=== PATIENT | female | born 1970 | race Two or more races ===

== ENCOUNTER 2018-11-21 18:44 | Emergency (ER) | payer SELFPAY ==
[2018-11-21] MEDS ORDERED: ONDANSETRON 4 MG TAB.RAPDIS PO ONE (19:50)
--- NOTE | 2018-11-21 19:50 | ER Document Report ---
ED Medical Screen (RME) - General Chief Complaint: Nausea/Vomiting/Diarrhea Stated Complaint: vomiting Time Seen by Provider: 11/21/18 19:39 Mode of Arrival: Wheelchair Information source: Patient Notes: 48-year-old female presented to ED for complaint of nausea vomiting diarrhea with back neck pain body aches. She states she has had diarrhea for the last 3 days and vomiting between 5 and 10 times a day. She states she was just down in [facility] after being transferred from here to there about 3 months ago and states that 58 days and got out about 3 weeks ago. She states that in a beta because she was septic. She states after that she letter to the hospital she was doing good until about 3 days ago when she started with the nausea vomiting and diarrhea. I have greeted and performed a rapid initial assessment of this patient. A comprehensive ED assessment and evaluation of the patient, analysis of test results and completion of medical decision making process will be conducted by an additional ED providers. Dictation of this chart was performed using voice recognition software; therefore, there may be some unintended grammatical errors. TRAVEL OUTSIDE OF THE [place] IN LAST 30 DAYS: No - Related Data Allergies/Adverse Reactions: No Known Allergies Allergy (Unverified 11/21/18 19:02) Past Medical History - Social History Chew tobacco use (# tins/day): No Frequency of alcohol use: None Drug Abuse: None Endocrine Medical History: Reports: Hx Diabetes Mellitus Type 2 Renal/ Medical History: Denies: Hx Peritoneal Dialysis Physical Exam - Vital signs Vitals: Temp Pulse Resp BP Pulse Ox 97.7 F 116 H 18 149/110 H 98 11/21/18 19:25 11/21/18 19:25 11/21/18 19:25 11/21/18 19:25 11/21/18 19:25 Course - Vital Signs Vital signs: Temp Pulse Resp BP Pulse Ox 97.7 F 116 H 18 149/110 H 98 11/21/18 19:25 11/21/18 19:25 11/21/18 19:25 11/21/18 19:25 11/21/18 19:25 - Laboratory Laboratory results interpreted by me: 11/21/18 19:26 POC Glucose 168 H
[2018-11-21 20:59] LABS: APPEARANCE,URINE CLOUDY; BILIRUBIN,URINE NEGATIVE (NEGATIVE); COLOR,URINE AMBER; GLUCOSE, URINE NEGATIVE (NEGATIVE); KETONES,URINE NEGATIVE (NEGATIVE); LEUKOCYTE ESTERASE,URINE MODERATE (NEGATIVE); NITRITE,URINE NEGATIVE (NEGATIVE); PROTEIN,URINE 30 mg/dL (NEGATIVE); URINE SPECIFIC GRAVITY 1.027; UROBILINOGEN,URINE NEGATIVE mg/dL (<2.0)
[2018-11-21 21:09] LABS: ALANINE AMINOTRANSFERASE 25 U/L (9-52); ALBUMIN 2.9 g/dL (3.5-5.0); ALKALINE PHOSPHATASE 416 U/L (38-126); ANION GAP 10 (5-19); ASPARTATE AMINO TRANSFERASE 42 U/L (14-36); BILIRUBIN,DIRECT 0.7 mg/dL (0.0-0.4); BILIRUBIN,TOTAL 1.5 mg/dL (0.2-1.3); BLOOD UREA NITROGEN 4 mg/dL (7-20); CALCIUM 9.6 mg/dL (8.4-10.2); CARBON DIOXIDE 21 mmol/L (22-30); CHLORIDE 107 mmol/L (98-107); GLUCOSE 173 mg/dL (75-110); LIPASE 273.7 U/L (23-300); POTASSIUM 4.2 mmol/L (3.6-5.0); SODIUM 137.6 mmol/L (137-145); TOTAL PROTEIN 7.6 g/dL (6.3-8.2)
[2018-11-21 22:21] LABS: ABSOLUTE BASOPHILS # (AUTO) 0.1 10^3/uL (0.0-0.2); ABSOLUTE LYMPHOCYTES (AUTO) 2.4 10^3/uL (0.5-4.7); ABSOLUTE MONOCYTES (AUTO) 0.6 10^3/uL (0.1-1.4); ABSOLUTE NEUT (AUTO) 8.5 10^3/uL (1.7-8.2); BASOPHILS % (AUTO) 0.7 % (0-2); EOSINOPHILS % (AUTO) 0.2 % (0-6); HEMOGLOBIN 11.3 g/dL (12.0-15.5); MEAN CORPUSCULAR HEMOGLOBIN 30.3 pg (27.0-33.4); MEAN CORPUSCULAR HGB CONC 33.3 g/dL (32.0-36.0); MEAN CORPUSCULAR VOLUME 91 fl (80-97); MONOCYTES % (AUTO) 5.2 % (3-13); PLATELET COUNT 180 10^3/uL (150-450); RED BLOOD COUNT 3.73 10^6/uL (3.72-5.28); RED CELL DISTRIBUTION WIDTH 17.2 % (11.5-14.0); SEGMENTED NEUTROPHILS % (AUTO) 72.9 % (42-78); TOTAL CELLS COUNTED % (AUTO) 100 %; WHITE BLOOD COUNT 11.7 10^3/uL (4.0-10.5)
[2018-11-22] MEDS ORDERED: RINGERS SOLUTION,LACTATED 1,000 ML IV PRN (01:39)
[2018-11-22] MEDS ORDERED: MORPHINE SULFATE 10 MG/ML INJ IV ONE (01:40)
[2018-11-22] MEDS ORDERED: ONDANSETRON HCL INJ/PF 4 MG/2 ML SDV IV ONE (01:40)
--- NOTE | 2018-11-22 01:41 | ER Document Report ---
ED General - General Chief Complaint: Nausea/Vomiting/Diarrhea Stated Complaint: vomiting Time Seen by Provider: 11/21/18 19:39 Primary Care Provider: [facility] [Provider Group] - Follow up in 3-5 days Mode of Arrival: Wheelchair Notes: Patient is a 48-year-old female that presents to the emergency department for chief complaint of abdominal pain, nausea, vomiting diarrhea. Patient states that the last 3 days she started having watery diarrhea, and yesterday started having nonbilious vomiting. She has had abdominal cramping and pain since then. She describes it as all over her abdomen. And not one spot of the other. She states it feels like when she had a flareup of pancreatitis. She currently rates her pain as a 7 out of 10 describes it as severe aching pain in her abdomen that radiates towards the back. She states she was diagnosed with acute pancreatitis over 2 months ago, states that she was intubated, and in the ICU, and total hospitalization for 58 days in [facility], she was discharged 3 weeks ago states she is doing rather well, and recovering and getting therapy up until 3 days ago when she started feeling worse. She denies any recent consumption of undercooked foods, or any sick contacts that she is aware of. She states she was on antibiotics for pneumonia early on in her hospital course, but nothing recently. Past Medical History: Alcoholism, pancreatitis, diabetes mellitus Past Surgical History: Gastric bypass surgery Social History: Admits to smoking cigarettes, former alcoholic, denies illicit drug use. Family History: Reviewed and noncontributory for presenting illness Allergies: Reviewed, see documented allergy list. REVIEW OF SYSTEMS: Other than noted above, the 12 point review of systems was reviewed with the patient and were negative, all pertinent findings are included in the HPI. PHYSICAL EXAMINATION: Vital signs reviewed, nursing noted reviewed. GENERAL: Patient appears uncomfortable on exam, tearful. HEAD: Atraumatic, normocephalic. EYES: Eyes appear normal, extraocular movements intact, sclera anicteric, conjunctiva are normal. ENT: nares patent, oropharynx clear without exudates. Moist mucous membranes. NECK: Normal range of motion, supple without lymphadenopathy LUNGS: Breath sounds clear to auscultation bilaterally and equal. No wheezes rales or rhonchi. HEART: Heart rate tachycardic, regular rhythm. ABDOMEN: Soft, mild diffuse abdominal tenderness with palpation, normoactive bowel sounds. No rebound, guarding, or rigidity. No masses appreciated. EXTREMITIES: Nontender, good range of motion, no pitting or edema. NEUROLOGICAL: No focal neurological deficits. Moves all extremities spontaneously Motor and sensory grossly intact on exam. PSYCH: Tearful on exam, but answering questions appropriately. SKIN: Warm, Dry, normal turgor, no rashes or lesions noted on exposed skin TRAVEL OUTSIDE OF THE [place] IN LAST 30 DAYS: No - Related Data Allergies/Adverse Reactions: No Known Allergies Allergy (Unverified 11/21/18 19:02) Past Medical History - General Information source: Patient - Social History Smoking Status: Current Every Day Smoker Chew tobacco use (# tins/day): No Frequency of alcohol use: None Drug Abuse: None Family History: Reviewed & Not Pertinent Patient has suicidal ideation: No Patient has homicidal ideation: No Endocrine Medical History: Reports: Hx Diabetes Mellitus Type 2 Renal/ Medical History: Denies: Hx Peritoneal Dialysis Physical Exam - Vital signs Vitals: Temp Pulse Resp BP Pulse Ox 97.7 F 116 H 18 149/110 H 98 11/21/18 19:25 11/21/18 19:25 11/21/18 19:25 11/21/18 19:25 11/21/18 19:25 Course - Re-evaluation Re-evalutation: Patient seen and examined vital signs reviewed. Laboratory data and/or imaging were ordered as appropriate for the patient's presenting symptoms and complaint, with consideration of any critical or life threatening conditions that may be associated with their obtained history and exam as noted above. Patient was treated with IV fluids, Zofran, and morphine for pain Results were reviewed when available and demonstrated mild elevation in bilirubin, and elevated alkaline phosphatase, therefore right upper quadrant ultrasound was ordered, with an unremarkable appearing gallbladder, mild hepatic steatosis noted as well. The patient with a history of drinking as hers, this would be expected. I imagine in this patient's case her elevated alkaline phosphatase is secondary to the patient's bone demineralization, given that she was bed ridden essentially for 2 months, which is consistent with other blood work including her albumin that was markedly low at 2.9. The patient was re-evaluated and was stable and much improved after treatment, feel the patient likely has a viral gastroenteritis, low suspicion for C. difficile given recent antibiotic use, and only minimally elevated white blood cell count, patient had not had diarrhea while in the ED either. It is possible she is having a flare on chronic pancreatitis as the patient states she was pre scribed Creon, but could not afford it, recommended taking Zofran at home, will give a short prescription, 8 tablets of oxycodone IR to take for pain if this is an acute on chronic pancreatitis and a mild degree, have her follow-up with chronic pain management and her primary care. Evaluation was most consistent with abdominal pain, nausea, vomiting and diarrhea Results were discussed with the patient at this point, after careful consideration I feel that that patient can be discharged from the emergency department, the patient was educated treatments and reasons to return to the emergency department based on their presumed diagnosis as noted above, they were advised to followup with a primary care physician in 2-3 days. Patient was agreeable to plan of care. *Note is created using voice recognition software and may contain spelling, syntax or grammatical errors. Laboratory 11/21/18 11/21/18 11/21/18 19:26 20:28 20:28 WBC Cancelled RBC Cancelled Hgb Cancelled Hct Cancelled MCV Cancelled MCH Cancelled MCHC Cancelled RDW Cancelled Plt Count Cancelled Seg Neutrophils % Cancelled Lymphocytes % Cancelled Monocytes % Cancelled Eosinophils % Cancelled Basophils % Cancelled Absolute Neutrophils Cancelled Absolute Lymphocytes Cancelled Absolute Monocytes Cancelled Absolute Eosinophils Cancelled Absolute Basophils Cancelled Platelet Estimate Cancelled Sodium 137.6 Potassium 4.2 Chloride 107 Carbon Dioxide 21 L Anion Gap 10 BUN 4 L Creatinine 0.61 Est GFR ( Amer) > 60 Est GFR (Non-Af Amer) > 60 Glucose 173 H POC Glucose 168 H Calcium 9.6 Total Bilirubin 1.5 H Direct Bilirubin 0.7 H Neonat Total Bilirubin Not Reportable Neonat Direct Bilirubin Not Reportable Neonat Indirect Bili Not Reportable AST 42 H ALT 25 Alkaline Phosphatase 416 H CK-MB (CK-2) Total Protein 7.6 Albumin 2.9 L Lipase 273.7 Beta HCG, Quant < 2.39 Total Beta HCG NEGATIVE Urine Color Urine Appearance Urine pH Ur Specific [place] Urine Protein Urine Glucose (UA) Urine Ketones Urine Blood Urine Nitrite Urine Bilirubin Urine Urobilinogen Ur Leukocyte Esterase Urine WBC (Auto) Urine RBC (Auto) U Hyaline Cast (Auto) Urine Bacteria (Auto) Squamous Epi Cells Auto Urine Mucus (Auto) Urine Ascorbic Acid Slides for Path Review Cancelled 11/21/18 11/21/18 11/21/18 20:28 20:28 21:53 WBC 11.7 H RBC 3.73 Hgb 11.3 L Hct 34.0 L MCV 91 MCH 30.3 MCHC 33.3 RDW 17.2 H Plt Count 180 Seg Neutrophils % 72.9 Lymphocytes % 21.0 Monocytes % 5.2 Eosinophils % 0.2 Basophils % 0.7 Absolute Neutrophils 8.5 H Absolute Lymphocytes 2.4 Absolute Monocytes 0.6 Absolute Eosinophils 0.0 Absolute Basophils 0.1 Platelet Estimate Sodium Potassium Chloride Carbon Dioxide Anion Gap BUN Creatinine Est GFR ( Amer) Est GFR (Non-Af Amer) Glucose POC Glucose Calcium Total Bilirubin Direct Bilirubin Neonat Total Bilirubin Neonat Direct Bilirubin Neonat Indirect Bili AST ALT Alkaline Phosphatase CK-MB (CK-2) 0.80 Total Protein Albumin Lipase Beta HCG, Quant Total Beta HCG Urine Color PRIYA Urine Appearance CLOUDY Urine pH 5.0 Ur Specific [place] 1.027 Urine Protein 30 H Urine Glucose (UA) NEGATIVE Urine Ketones NEGATIVE Urine Blood NEGATIVE Urine Nitrite NEGATIVE Urine Bilirubin NEGATIVE Urine Urobilinogen NEGATIVE Ur Leukocyte Esterase MODERATE H Urine WBC (Auto) 36 Urine RBC (Auto) 6 U Hyaline Cast (Auto) 20 Urine Bacteria (Auto) TRACE Squamous Epi Cells Auto 17 Urine Mucus (Auto) FEW Urine Ascorbic Acid 20 H Slides for Path Review Abdomen Ultrasound 11/22/18 01:40 IMPRESSION: No acute findings. Hepatic steatosis. Nonspecific positive sonographic Santillan's test. - Vital Signs Vital signs: Temp Pulse Resp BP Pulse Ox 97.8 F 102 H 20 124/57 L 100 11/22/18 01:41 11/22/18 01:41 11/22/18 01:41 11/22/18 01:41 11/22/18 01:41 - Laboratory Result Diagrams: 11/21/18 21:53 11/21/18 20:28 Laboratory results interpreted by me: 11/21/18 11/21/18 11/21/18 19:26 20:28 20:28 WBC Hgb Hct RDW Absolute Neutrophils Carbon Dioxide 21 L BUN 4 L Glucose 173 H POC Glucose 168 H Total Bilirubin 1.5 H Direct Bilirubin 0.7 H AST 42 H Alkaline Phosphatase 416 H Albumin 2.9 L Urine Protein 30 H Ur Leukocyte Esterase MODERATE H Urine Ascorbic Acid 20 H 11/21/18 21:53 WBC 11.7 H Hgb 11.3 L Hct 34.0 L RDW 17.2 H Absolute Neutrophils 8.5 H Carbon Dioxide BUN Glucose POC Glucose Total Bilirubin Direct Bilirubin AST Alkaline Phosphatase Albumin Urine Protein Ur Leukocyte Esterase Urine Ascorbic Acid Discharge - Discharge Clinical Impression: Nausea, vomiting and diarrhea Abdominal pain Qualifiers: Abdominal location: unspecified location Qualified Code(s): R10.9 - Unspecified abdominal pain Condition: Stable Disposition: HOME, SELF-CARE Instructions: Diarrhea, Nonspecific ([facility]), Vomiting ([facility]) Additional Instructions: Please follow-up with your primary care physician, call for an appointment, I have also listed a pain management clinic to follow-up with as well. Prescriptions: Omeprazole 40 mg PO DAILY #15 capsule. Oxycodone HCl [Oxycontin Ir 5 Mg Tablet] 5 mg PO Q6H PRN #8 tablet PRN Reason: For Pain Referrals: [facility] [Provider Group] - Follow up in 3-5 days
[2018-11-22] MEDS ORDERED: HYDROMORPHONE HCL INJ/PF 2 MG/ML AMPULE IV ONE (03:05)
--- NOTE | 2018-11-22 03:11 | RADIOLOGY REPORT (SQ) ---
EXAM DESCRIPTION: US ABDOMEN LIMITED COMPLETED DATE/TME: 11/22/2018 01:40 CLINICAL HISTORY: 48 years Female, ruq abdominal pain, n/v/d Comparison: None. LIMITATIONS: Bowel gas artifact. FINDINGS: Gallbladder is not fully distended, 0.4 cm gallbladder wall thickening, positive sonographic Santillan's test, moderate hepatic steatosis, 19 cm liver, a 0.8-cm diameter common bile duct, no intrahepatic ductal dilation, hepatopetal patent flow of the portal vein, 9-cm right kidney, obscured pancreas, visualized vasculature/abdominal aorta, and no significant ascites appear otherwise unremarkable. IMPRESSION: No acute findings. Hepatic steatosis. Nonspecific positive sonographic Santillan's test.
[2018-11-22] MEDS ORDERED: ONDANSETRON ODT 4 MG TAB (6 TAB/ER DISP) PO PRN (04:09)
[2018-11-22 04:45] VITALS: BP 126/58
== END 2018-11-22 04:35 | disposition home or self-care (01) ==
LOC: EDBD → ER 18:44
DX: R11.2 Nausea with vomiting, unspecified (principal); R19.7 Diarrhea, unspecified; R10.84 Generalized abdominal pain; R10.817 Generalized abdominal tenderness; K76.0 Fatty (change of) liver, not elsewhere classified; R74.0 Nonspecific elevation of levels of transaminase and lactic acid dehydrogenase [LDH]; R79.89 Other specified abnormal findings of blood chemistry; E11.9 Type 2 diabetes mellitus without complications; F17.210 Nicotine dependence, cigarettes, uncomplicated; Z87.19 Personal history of other diseases of the digestive system; Z98.84 Bariatric surgery status
CPT/HCPCS: 99284; 96361; 96374; 96375; 36415; 82553; 82962; 84702; 83690; 85025; 80053; 81001; 76705; S0119; J2270; J1170; J2405; J7120

== ENCOUNTER 2019-02-11 06:12 | Emergency (ER) | payer SELFPAY ==
[2019-02-11] MEDS ORDERED: NALOXONE HCL INJ 2 MG/2 ML DISP.SYRIN IV ONE (06:37)
[2019-02-11] MEDS ORDERED: DEXTROSE 5%-WATER 250 ML with NOREPINEPHRINE BITARTRATE 4 MG IV PRN ×2 (06:37)
[2019-02-11] MEDS ORDERED: KETAMINE HCL INJ 500 MG/10 ML VIAL IV ONE (06:38)
[2019-02-11] MEDS ORDERED: ROCURONIUM BROMIDE INJ 50 MG/5 ML VIAL IV ONE ×2 (06:38→09:03)
[2019-02-11] MEDS ORDERED: NORMAL SALINE 1000 ML 1,000 ML IV ONE (06:39)
--- NOTE | 2019-02-11 06:50 | RADIOLOGY REPORT (SQ) ---
EXAM DESCRIPTION: XR CHEST 1 VIEW COMPLETED DATE/TME: 02/11/2019 00:00 CLINICAL HISTORY: 48 years, Female, DIFF BREATHING COMPARISON: None. NUMBER OF VIEWS: One TECHNIQUE: AP view the chest LIMITATIONS: None. FINDINGS: There are diffuse airspace opacities. A moderate size right pleural effusion is present. The heart borders are obscured. There is no pneumothorax. No acute fracture is identified. IMPRESSION: Diffuse airspace opacities with a moderate size right pleural effusion. This may represent pulmonary edema and/or pneumonia. copyright 2010 [employer]- All Rights Reserved
[2019-02-11] MEDS ORDERED: VANCOMYCIN HCL INJ 1000 MG VIAL IV ONE (06:55)
--- NOTE | 2019-02-11 06:56 | ER Document Report ---
ED General - General Chief Complaint: Breathing Difficulty Stated Complaint: DIFFICULTY BREATHING Notes: 48-year-old female brought in with hypotension hypoxia unresponsiveness. Initially there was very little history available but eventually found out she has a history of severe CHF and was admitted to [facility] for multifactorial shock and respiratory failure including septic shock and cardiogenic shock in the last month. She states she hurts all over and cannot give further history. EMS has her on nonrebreather saturations in the 80s. TRAVEL OUTSIDE OF THE [place] IN LAST 30 DAYS: No - Related Data Allergies/Adverse Reactions: No Known Allergies Allergy (Unverified 11/21/18 19:02) Past Medical History - General Cannot obtain history due to: Unstable vital signs - Social History Smoking Status: Current Every Day Smoker Family History: Reviewed & Not Pertinent Endocrine Medical History: Reports: Hx Diabetes Mellitus Type 2 Renal/ Medical History: Denies: Hx Peritoneal Dialysis Review of Systems - Review of Systems Notes: REVIEW OF SYSTEMS Status/unstable vitals PHYSICAL EXAMINATION General: Acutely ill Head: Atraumatic, normocephalic ENT: Mouth normal, oropharynx moist, no exudates or tonsillar enlargement Eyes: Conjunctiva normal, pupils equal, lids normal Neck: No JVD, supple, no guarding CVS: Pulses are thready, tachycardic Resp: Distress with decreased breath sounds at both bases GI: Nondistended, soft, no tenderness to palpation, no rebound or guarding Ext: No deformities, bilateral leg edema, left greater than right arm edema, normal range of motion in upper and lower ext Back: No CVA or midline TTP Skin: [place] Lymphatic: No lymphadeopathy noted Neuro: Eyes open, voice is quiet responds to simple questions but is generally lethargic, moving all extremities Physical Exam - Vital signs Vitals: Resp Pulse Ox 36 H 86 L 02/11/19 06:16 02/11/19 06:16 Course - Re-evaluation Re-evalutation: 02/11/19 06:55 Critically ill patient presents with shock and hypoxia with respiratory failure. 02/11/19 07:13 Initially hypoxic but saturations came up with facemask and nasal cannula oxygen. Ultrasound of the chest shows bilateral pleural effusions and poor cardiac contractility. Chest x-ray was donethis shows bilateral pulmonary edema and effusions. The patient was managed initially without IV access, we put an IO in her right shoulder, gave her a half a liter of fluid and started levo fed drip. Concomitantly nurse to search for access. I attempted a right groin central line but due to anasarca and poor body habitus this was not possible. Attempted EJ [id number]. Initially unable to obtain further access nurses got to 20-gauge IVs. I am concerned for cardiac shock but she is been septic in the past and prehospital lactic was 10. I have ordered cefepime 2 g and vancomycin 1 g. As of 715 they are both infusing. We were able to avoid intubation also be considered strongly. I do not have lab data back yet but I do suspect multifactorial shock and respiratory failure. I did try Narcan which did not improve her respiratory drive. I looked this patient up in the [facility] records, via the mobile yoko, and she was admitted for septic and cardiogenic shock about 3 months ago to the ICU and had respiratory failure at that time as well. Her family is unavailable at current time for further history. I placed a call to [facility]. The patient was accepted for transfer, before her work-up was complete, at a proximally [address] Ford. Labs were sent 715. 02/11/19 08:17 Chest x-ray 15 shows slightly deep But I will leave in place for now. The patient's pressure is stable and she is intermittently requiring levo fed but her respiratory status is also stabilized with saturations in the low 90s. I do not want to give her diuresis at this point. She has now a right internal jugular line, vital leak is on their way. The patient is been accepted by Dr. Ford 02/11/19 08:17 I discussed with the family. - Vital Signs Vital signs: Temp Pulse Resp BP Pulse Ox 97.3 F 39 H 120/88 H 95 02/11/19 06:33 02/11/19 06:40 02/11/19 06:40 02/11/19 06:40 - Laboratory Result Diagrams: 02/11/19 07:00 02/11/19 07:00 Laboratory results interpreted by me: 02/11/19 02/11/19 07:00 07:00 WBC 12.0 H RBC 3.38 L Hgb 11.2 L Hct 33.9 L MCV 100 H RDW 17.1 H Band Neutrophils % 27 H Abs Neuts (Manual) 9.8 H Sodium 129.7 L Potassium 5.3 H Carbon Dioxide 14 L Creatinine 2.27 H Est GFR ( Amer) 28 L Est GFR (MDRD) Non-Af 23 L Glucose 177 H Total Bilirubin 4.2 H Direct Bilirubin 3.0 H AST 70 H Alkaline Phosphatase 302 H Albumin 1.9 L - Diagnostic Test Radiology reviewed: Image reviewed, Reports reviewed - EKG Interpretation by Me EKG shows normal: Sinus rhythm Rate: Normal, Tachycardia Rhythm: Other - Low amplitude Procedures - Central Line Right Femoral Time completed: 07:50 Consent obtained: Yes - Verbal Central line pre-insertion: Chloraprep applied, Sterile drapes applied Anesthetic type: 1% Lidocaine mL's of anesthesia: 5 Ultrasound guided: Yes Complications: Yes - Failure to place line based on poor visualization Right Internal jugular Time completed: 08:00 Consent obtained: Yes - Verbal emergent Central line pre-insertion: Sterile PPE donned, Chloraprep applied Central line lumen type: Triple Anesthetic type: 1% Lidocaine mL's of anesthesia: 3 Ultrasound guided: Yes Line secured with sutures: Yes Central line post-insertion: Blood return from lumens, Biopatch applied, Sutured, Sterile dressing applied, Position confirmed w/ CXR Number of attempts: 1 Complications: No - Ultrasound/Bedside Ultrasound/Bedside Ultrasound: Other - Echo: Small pericardial effusion. Bilateral pleural effusions right greater than left, poor cardiac contractility, flat IVC/flat internal jugular with respiratory variation - Additional Procedures IO insertion Time performed: 06:40 - Humeral IO right side, sterile prep usual technique IV insertion Time performed: 06:40 - Left external jugular physicianinserted IV. Able to get flash/IV blew. Nursing unable to obtain access so physician still required. Critical Care Note - Critical Care Note Total time excluding time spent on procedures (mins): 75 Comments: The above patient is critically ill. Not including procedures, but including direct re-evaluations, speaking with patient and/or consultants, interpreting results, and documenting, I spent the total amount of minute listed listed above on critical care time Discharge - Discharge Clinical Impression: Cardiogenic shock Respiratory failure with hypoxia Qualifiers: Chronicity: acute Qualified Code(s): J96.01 - Acute respiratory failure with hypoxia Condition: Critical Disposition: [facility]
[2019-02-11] MEDS ORDERED: CEFEPIME 2 GM/D5W RTU 2 GM/50 ML RTUPB IV SCH (07:00)
[2019-02-11] MEDS ORDERED: FENTANYL CITRATE INJ/PF 100 MCG/2 ML AMPUL ONE ×3 (07:12→09:18)
[2019-02-11] MEDS ORDERED: FENTANYL CITRATE INJ/PF 100 MCG/2 ML AMPUL IV ONE (07:16)
[2019-02-11 07:25] LABS: HEMATOCRIT 33.9 % (36.0-47.0); HEMOGLOBIN 11.2 g/dL (12.0-15.5); MEAN CORPUSCULAR HEMOGLOBIN 33.1 pg (27.0-33.4); MEAN CORPUSCULAR VOLUME 100 fl (80-97); RED BLOOD COUNT 3.38 10^6/uL (3.72-5.28); RED CELL DISTRIBUTION WIDTH 17.1 % (11.5-14.0)
[2019-02-11 07:38] LABS: ALBUMIN 1.9 g/dL (3.5-5.0); ALKALINE PHOSPHATASE 302 U/L (38-126); ANION GAP 15 (5-19); ASPARTATE AMINO TRANSFERASE 70 U/L (14-36); BILIRUBIN,TOTAL 4.2 mg/dL (0.2-1.3); BLOOD UREA NITROGEN 11 mg/dL (7-20); CALCIUM 8.4 mg/dL (8.4-10.2); CARBON DIOXIDE 14 mmol/L (22-30); CHLORIDE 101 mmol/L (98-107); GLUCOSE 177 mg/dL (75-110); POTASSIUM 5.3 mmol/L (3.6-5.0); TOTAL PROTEIN 6.4 g/dL (6.3-8.2)
[2019-02-11 07:49] LABS: PLATELET COUNT 157 10^3/uL (150-450)
[2019-02-11 07:53] LABS: ABSOLUTE LYMPHOCYTES# (MANUAL) 1.8 10^3/uL (0.5-4.7); ABSOLUTE MONOCYTES # (MANUAL) 0.4 10^3/uL (0.1-1.4); BASOPHILS % (MANUAL) 0 % (0-2); EOSINOPHILS % (MANUAL) 0 % (0-6); LYMPHOCYTES % (MANUAL) 15 % (13-45); MONOCYTES % (MANUAL) 3 % (3-13); SEGMENTED NEUTROPHILS % (MAN) 55 % (42-78); TOTAL CELLS COUNTED 100
[2019-02-11 07:54] LABS: BAND NEUTROPHILS % (MANUAL) 27 % (3-5); HYPOCHROMASIA 1+; TOXIC GRANULATION SLIGHT; TOXIC VACUOLATION PRESENT
[2019-02-11 07:55] LABS: PLATELET CLUMPS PRESENT; TARGET CELLS SLIGHT
[2019-02-11 08:04] LABS: NT PRO BNP 1680 pg/mL (<125)
[2019-02-11 08:12] LABS: INTERNATIONAL RATION (INR) 2.59; PROTHROMBIN TIME 28.3 SEC (11.4-15.4)
[2019-02-11 08:20] LABS: TROPONIN I < 0.012 ng/mL
--- NOTE | 2019-02-11 08:22 | RADIOLOGY REPORT (SQ) ---
EXAM DESCRIPTION: CHEST SINGLE VIEW COMPLETED DATE/TIME: 02/11/2019 8:08 am REASON FOR STUDY: central line placement. COMPARISON: 02/11/2019 at 0631 hours. EXAM PARAMETERS: NUMBER OF VIEWS: One view. TECHNIQUE: Single frontal radiographic view of the chest acquired. RADIATION DOSE: NA LIMITATIONS: None. FINDINGS: LUNGS AND PLEURA: Diffuse airspace disease. Right pleural effusion versus costophrenic bl unting. No pneumothorax. MEDIASTINUM AND HILAR STRUCTURES: No masses. Contour normal. HEART AND VASCULAR STRUCTURES: Heart normal in size. Normal vasculature. BONES: No acute findings. HARDWARE: Central line with the tip at the level of the right atrium. OTHER: No other significant finding. IMPRESSION: CENTRAL LINE PLACEMENT DESCRIBED. NO PNEUMOTHORAX. OTHERWISE NO CHANGE. TECHNICAL DOCUMENTATION: JOB ID: [id number] [employer]- All Rights Reserved Reading location - IP/workstation name: [email or web address]
[2019-02-11] MEDS ORDERED: ETOMIDATE INJ/PF 20 MG/10 ML SDV IV ONE (08:47)
[2019-02-11] MEDS ORDERED: PROPOFOL 1,000 MG/100 ML INFUS..BTL IV ONE (08:53)
[2019-02-11 09:41] VITALS: BP 149/78
--- NOTE | 2019-02-11 10:04 | RADIOLOGY REPORT (SQ) ---
EXAM DESCRIPTION: CHEST SINGLE VIEW COMPLETED DATE/TIME: 02/11/2019 9:34 am REASON FOR STUDY: post intub COMPARISON: 02/11/2019 at 0758 hours. EXAM PARAMETERS: NUMBER OF VIEWS: One view. TECHNIQUE: Single frontal radiographic view of the chest acquired. RADIATION DOSE: NA LIMITATIONS: None. FINDINGS: LUNGS AND PLEURA: Low lung volumes. Hazy airspace disease and blunting of the right costo phrenic angle. MEDIASTINUM AND HILAR STRUCTURES: No masses. Contour normal. HEART AND VASCULAR STRUCTURES: Heart normal in size. Normal vasculature. BONES: No acute findings. HARDWARE: Stable central venous catheter. Endotracheal tube with the tip located 2 cm proximal to th e michael. OTHER: No other significant finding. IMPRESSION: INTERVAL PLACEMENT OF AN ENDOTRACHEAL TUBE WHICH APPEARS TO BE IN APPROPRIATE POSITION. OTHERWISE NO CHANGE. TECHNICAL DOCUMENTATION: JOB ID: [id number] [employer]- All Rights Reserved Reading location - IP/workstation name: [email or web address]
[2019-02-12 16:44] LABS: PATH REVIEW PATHOLOGIST REVIEWED
--- NOTE | 2019-02-12 23:25 | EKG REPORT ---
SEVERITY:- ABNORMAL ECG - SINUS TACHYCARDIA PROBABLE LEFT ATRIAL ABNORMALITY BORDERLINE R WAVE PROGRESSION, ANTERIOR LEADS BORDERLINE T ABNORMALITIES, ANT-LAT LEADS : Confirmed by: Cale Montiel 12-Feb-2019 23:24:56
== END 2019-02-11 08:38 | disposition short-term general hospital (02) ==
LOC: ER 06:12
PROC: 05HQ33Z Insertion of Infusion Device into Left External Jugular Vein, Percutaneous Approach (ICD-10-PCS; principal; 2019-02-11)
DX: I31.3 Pericardial effusion (noninflammatory) (principal); J90 Pleural effusion, not elsewhere classified; J96.01 Acute respiratory failure with hypoxia; R57.0 Cardiogenic shock; I50.9 Heart failure, unspecified; F17.200 Nicotine dependence, unspecified, uncomplicated; E11.9 Type 2 diabetes mellitus without complications
CPT/HCPCS: 93005; 99291; 99292; 51702; 96375; 96365; 96367; 36415; 87040; 85025; 85610; 87075; 87077; 80053; 84484; 83605; 83880; 71045; 93010; 94660; 36556; J3490 ×3; J3010; J2704; J2310; J7060; J7030; J3370; J0692